=== PATIENT | male | born 1965 | race Caucasian/White ===

== ENCOUNTER 2017-12-15 10:37 | Emergency (ER) | payer OTHER ==
[2017-12-15 11:24] LABS: ADD MAN DIFF? NO
[2017-12-15] MEDS: SOD CHLORIDE 0.9% 500 ML IV (11:25)
[2017-12-15] MEDS: ONDANSETRON 4 MG INJ IV (11:25)
[2017-12-15] MEDS: FAMOTIDINE 20 MG INJ IV (11:25)
[2017-12-15] MEDS: LIDOCAINE/MYLANTA 40 ML BTL PO (11:25)
[2017-12-15 11:27] LABS: BASOPHILS % 0.3 % (0.0-2.0); EOSINOPHILS # 0.1 10^3/ul (0.0-0.5); EOSINOPHILS % 1.1 % (0.0-7.0); HEMATOCRIT 41.9 % (42.0-52.0); HEMOGLOBIN 13.5 g/dl (14.0-18.0); LYMPHOCYTES # 1.4 10^3/ul (0.8-2.9); LYMPHOCYTES % 21.8 % (15.0-51.0); MEAN CORPUSCULAR HEMOGLOBIN 28.9 pg (29.0-33.0); MEAN CORPUSCULAR HGB CONC 32.2 g/dl (32.0-37.0); MEAN CORPUSCULAR VOLUME 89.7 fl (82.0-101.0); MEAN PLATELET VOLUME 11.6 fl (7.4-10.4); MONOCYTE # 0.4 10^3/ul (0.3-0.9); MONOCYTES % 5.5 % (0.0-11.0); NEUTROPHIL # 4.6 10^3/ul (1.6-7.5); NEUTROPHILS % 71.1 % (39.0-77.0); PLATELET COUNT 211 10^3/UL (140-415); RED BLOOD COUNT 4.67 10^6/ul (4.70-6.10); RED CELL DISTRIBUTION WIDTH 12.3 % (11.5-14.5)
[2017-12-15 11:27] LABS: WHITE BLOOD COUNT 6.5 10^3/ul (4.8-10.8)
[2017-12-15 11:43] LABS: INR 0.95; PROTIME 12.8 Sec (11.9-14.9)
[2017-12-15 11:44] LABS: PARTIAL THROMBOPLASTIN TIME 32.3 Sec (23.0-35.0)
[2017-12-15 11:48] LABS: ALANINE AMINOTRANSFERASE 27 IU/L (13-69); ALBUMIN 4.7 g/dl (3.3-4.9); ALKALINE PHOSPHATASE 95 IU/L (42-121); ANION GAP 10 (5-13); ASPARTATE AMINO TRANSFERASE 30 IU/L (15-46); BILIRUBIN,INDIRECT 0.4 mg/dl (0-1.1); BILIRUBIN,TOTAL 0.4 mg/dl (0.2-1.3); BLOOD UREA NITROGEN 12 mg/dl (7-20); CALCIUM 9.6 mg/dl (8.4-10.2); CARBON DIOXIDE 38 mmol/L (21-31); CHLORIDE 91 mmol/L (97-110); CREATININE 0.45 mg/dl (0.61-1.24); Estimated GFR > 60 mL/min (>60); GLUCOSE 105 mg/dl (70-220); LIPASE 48 U/L (23-300); POTASSIUM 4.2 mmol/L (3.5-5.1); SODIUM 139 mmol/L (135-144); TOTAL PROTEIN 8.6 g/dl (6.1-8.1)
[2017-12-15] MEDS: KETOROLAC 15 MG INJ IV (14:18)
== END 2017-12-15 17:00 | disposition home or self-care (01) ==
LOC: E/R 10:37
DX: J84.10 Pulmonary fibrosis, unspecified (principal); R10.13 Epigastric pain; R53.1 Weakness; Z79.01 Long term (current) use of anticoagulants; Z86.711 Personal history of pulmonary embolism; Z99.81 Dependence on supplemental oxygen
CPT/HCPCS: 36415; 71045; 80053; 83690; 85025; 85610; 85730; 93005; 96374; 96375; 99284-25

== ENCOUNTER 2018-08-07 21:22 | Inpatient (IN) | payer OTHER ==
[2018-08-07 21:41] LABS: ADD MAN DIFF? NO
[2018-08-07 21:44] LABS: WHITE BLOOD COUNT 10.8 10^3/ul (4.8-10.8)
[2018-08-07 21:44] LABS: BASOPHILS % 0.2 % (0.0-2.0); EOSINOPHILS # 0.1 10^3/ul (0.0-0.5); EOSINOPHILS % 0.5 % (0.0-7.0); HEMATOCRIT 43.8 % (42.0-52.0); HEMOGLOBIN 13.7 g/dl (14.0-18.0); MEAN CORPUSCULAR HEMOGLOBIN 28.7 pg (29.0-33.0); MEAN CORPUSCULAR HGB CONC 31.3 g/dl (32.0-37.0); MEAN CORPUSCULAR VOLUME 91.8 fl (82.0-101.0); MEAN PLATELET VOLUME 11.8 fl (7.4-10.4); MONOCYTE # 0.4 10^3/ul (0.3-0.9); MONOCYTES % 3.6 % (0.0-11.0); NEUTROPHIL # 9.4 10^3/ul (1.6-7.5); NEUTROPHILS % 86.3 % (39.0-77.0); PLATELET COUNT 187 10^3/UL (140-415); RED BLOOD COUNT 4.77 10^6/ul (4.70-6.10); RED CELL DISTRIBUTION WIDTH 12.6 % (11.5-14.5)
[2018-08-07] MEDS: IOHEXOL 100 ML (21:44)
[2018-08-07] MEDS: SOD CHLORIDE 0.9% 100 ML (21:44)
[2018-08-07] MEDS: SOD CHLORIDE 0.9% 1,000 ML IV (21:52)
[2018-08-07] MEDS: SODIUM CHLORIDE 0.9% 1L BAG IV* (21:53)
[2018-08-07] MEDS: CEFEPIME 2GM/50 ML (PMX) 50 ML IVPB (21:54)
[2018-08-07] MEDS: morphine 4 MG/ML VIAL IV (21:54)
[2018-08-07] MEDS: ONDANSETRON 4 MG INJ IV (21:54)
[2018-08-07 22:03] LABS: INR 0.94; PROTIME 12.7 Sec (11.9-14.9)
[2018-08-07 22:04] LABS: PARTIAL THROMBOPLASTIN TIME 26.2 Sec (23.0-35.0)
[2018-08-07 22:05] LABS: ALANINE AMINOTRANSFERASE 21 IU/L (13-69); ALBUMIN 4.5 g/dl (3.3-4.9); ALBUMIN/GLOBULIN RATIO 1.18; ALKALINE PHOSPHATASE 87 IU/L (42-121); AMYLASE 101 U/L (11-123); ASPARTATE AMINO TRANSFERASE 26 IU/L (15-46); BILIRUBIN,INDIRECT 0.4 mg/dl (0-1.1); BILIRUBIN,TOTAL 0.4 mg/dl (0.2-1.3); BLOOD UREA NITROGEN 15 mg/dl (7-20); CALCIUM 9.2 mg/dl (8.4-10.2); CHLORIDE 88 mmol/L (97-110); CREATININE 0.51 mg/dl (0.61-1.24); Estimated GFR > 60 mL/min (>60); GLUCOSE 176 mg/dl (70-220); LIPASE 102 U/L (23-300); POTASSIUM 3.8 mmol/L (3.5-5.1); SODIUM 137 mmol/L (135-144); TOTAL PROTEIN 8.3 g/dl (6.1-8.1)
[2018-08-07 22:15] LABS: ANION GAP 7 (5-13); CARBON DIOXIDE 42 mmol/L (21-31)
[2018-08-07 22:17] LABS: TROPONIN-I < 0.012 ng/ml (0.000-0.120)
[2018-08-07] MEDS: LORAZEPAM 2 MG INJ IV (22:17)
[2018-08-07] MEDS: VANCOMYCIN 1 GM (PMX) 250 ML IVPB (22:25)
[2018-08-07] MEDS: IPRATROPIUM (NEB) 0.5 MG/2.5 ML AMP INH (23:46)
[2018-08-07] MEDS: LEVALBUTEROL (NEB) 1.25 MG/0.5 ML AMP INH (23:46)
[2018-08-07 23:56] LABS: LACTIC ACID 0.6 mmol/L (0.5-2.0)
[2018-08-08] MEDS: HYDROmorphONE 1 MG/ML SYG IV (00:47)
[2018-08-08] MEDS: PROPOFOL 200 MG INJ IV (01:11)
[2018-08-08] MEDS: SOD CHLORIDE 0.9% 1,000 ML IV (01:56)
[2018-08-08 03:20] LABS: ADD UMIC NO; UR ASCORBIC ACID NEGATIVE (NEGATIVE); UR BILIRUBIN (Dip) NEGATIVE (NEGATIVE); UR BLOOD (Dip) NEGATIVE (NEGATIVE); UR CLARITY CLEAR (CLEAR); UR COLOR STRAW (YELLOW); UR GLUCOSE (Dip) NEGATIVE (NEGATIVE); UR KETONES (Dip) NEGATIVE (NEGATIVE); UR LEUKOCYTE ESTERASE (Dip) NEGATIVE Leu/ul (NEGATIVE); UR NITRITE (Dip) NEGATIVE (NEGATIVE); UR SPECIFIC GRAVITY (Dip) 1.038 (1.003-1.030); UR TOTAL PROTEIN (Dip) NEGATIVE (NEGATIVE); UR UROBILINOGEN (Dip) NEGATIVE (NEGATIVE)
[2018-08-08 05:42] LABS: ADD MAN DIFF? NO
[2018-08-08 05:48] LABS: WHITE BLOOD COUNT 12.3 10^3/ul (4.8-10.8)
[2018-08-08 05:48] LABS: BASOPHILS % 0.2 % (0.0-2.0); HEMATOCRIT 38.1 % (42.0-52.0); LYMPHOCYTES # 1.1 10^3/ul (0.8-2.9); LYMPHOCYTES % 8.9 % (15.0-51.0); MEAN CORPUSCULAR HEMOGLOBIN 29.1 pg (29.0-33.0); MEAN CORPUSCULAR HGB CONC 31.5 g/dl (32.0-37.0); MEAN CORPUSCULAR VOLUME 92.5 fl (82.0-101.0); MEAN PLATELET VOLUME 11.7 fl (7.4-10.4); MONOCYTE # 0.9 10^3/ul (0.3-0.9); MONOCYTES % 7.2 % (0.0-11.0); NEUTROPHIL # 10.2 10^3/ul (1.6-7.5); NEUTROPHILS % 83.3 % (39.0-77.0); PLATELET COUNT 165 10^3/UL (140-415); RED BLOOD COUNT 4.12 10^6/ul (4.70-6.10); RED CELL DISTRIBUTION WIDTH 12.6 % (11.5-14.5)
[2018-08-08 06:17] LABS: ALANINE AMINOTRANSFERASE 22 IU/L (13-69); ALBUMIN 3.8 g/dl (3.3-4.9); ALBUMIN/GLOBULIN RATIO 1.22; ALKALINE PHOSPHATASE 67 IU/L (42-121); ASPARTATE AMINO TRANSFERASE 30 IU/L (15-46); BILIRUBIN,INDIRECT 0.3 mg/dl (0-1.1); BILIRUBIN,TOTAL 0.3 mg/dl (0.2-1.3); BLOOD UREA NITROGEN 9 mg/dl (7-20); CHLORIDE 92 mmol/L (97-110); CREATININE 0.37 mg/dl (0.61-1.24); Estimated GFR > 60 mL/min (>60); GLUCOSE 135 mg/dl (70-220); POTASSIUM 4.3 mmol/L (3.5-5.1); SODIUM 140 mmol/L (135-144); TOTAL PROTEIN 6.9 g/dl (6.1-8.1)
[2018-08-08 06:38] LABS: ANION GAP 7 (5-13)
[2018-08-08 06:39] LABS: CARBON DIOXIDE 41 mmol/L (21-31)
[2018-08-08] MEDS: BACLOFEN 10 MG TAB PO ×3 (08:17→23:02)
[2018-08-08] MEDS: DOCUSATE SODIUM 100 MG CAP PO (08:19)
[2018-08-08] MEDS: TIOTROPIUM 18 MCG CAPSULE INHA DEV INH (08:19)
[2018-08-08] MEDS: FAMOTIDINE 20 MG TAB PO ×2 (08:19→21:06)
[2018-08-08] MEDS ORDERED: LORAZEPAM 2 MG INJ IV (17:30)
[2018-08-08] MEDS ORDERED: ALBUTEROL/IPRATROPIUM (NEB) 3 ML AMP HHN (17:30)
[2018-08-08] MEDS: HYDROCODONE/APAP (5/325) TAB PO ×2 (18:30→23:01)
[2018-08-08] MEDS: CEPASTAT LOZENGE MT (22:59)
[2018-08-09] MEDS ORDERED: VANCOMYCIN IV PER PHARMACY XX (01:00)
[2018-08-09] MEDS: VANCOMYCIN 1 GM 250 ML IVPB (02:23)
[2018-08-09] MEDS: DICLOFENAC SODIUM 1% GEL 100 GM TUBE TP ×5 (05:14→20:53)
[2018-08-09] MEDS: HYDROCODONE/APAP (5/325) TAB PO ×2 (05:32→23:17)
[2018-08-09 06:35] LABS: ADD MAN DIFF? NO
[2018-08-09 06:40] LABS: BASOPHILS % 0.3 % (0.0-2.0); EOSINOPHILS # 0.2 10^3/ul (0.0-0.5); EOSINOPHILS % 2.7 % (0.0-7.0); HEMOGLOBIN 11.5 g/dl (14.0-18.0); LYMPHOCYTES % 13.2 % (15.0-51.0); MEAN CORPUSCULAR HEMOGLOBIN 28.8 pg (29.0-33.0); MEAN CORPUSCULAR HGB CONC 31.1 g/dl (32.0-37.0); MEAN CORPUSCULAR VOLUME 92.5 fl (82.0-101.0); MEAN PLATELET VOLUME 12.2 fl (7.4-10.4); MONOCYTES % 12.2 % (0.0-11.0); NEUTROPHIL # 5.6 10^3/ul (1.6-7.5); NEUTROPHILS % 71.3 % (39.0-77.0); PLATELET COUNT 143 10^3/UL (140-415); RED CELL DISTRIBUTION WIDTH 12.4 % (11.5-14.5)
[2018-08-09 06:40] LABS: WHITE BLOOD COUNT 7.9 10^3/ul (4.8-10.8)
[2018-08-09 06:57] LABS: BLOOD UREA NITROGEN 10 mg/dl (7-20); CHLORIDE 86 mmol/L (97-110); CREATININE 0.46 mg/dl (0.61-1.24); Estimated GFR > 60 mL/min (>60); GLUCOSE 93 mg/dl (70-220); MAGNESIUM 1.8 mg/dl (1.7-2.5); POTASSIUM 4.3 mmol/L (3.5-5.1); SODIUM 139 mmol/L (135-144)
[2018-08-09 07:05] LABS: HEMOGLOBIN A1C 5.1 % (0-5.9)
[2018-08-09 07:31] LABS: ANION GAP 5 (5-13)
[2018-08-09 07:32] LABS: CARBON DIOXIDE 48 mmol/L (21-31)
[2018-08-09] MEDS: DOCUSATE SODIUM 100 MG CAP PO (08:20)
[2018-08-09] MEDS: ACETAMINOPHEN 650MG/20.3ML CUP PO ×2 (08:20→14:18)
[2018-08-09] MEDS: BACLOFEN 10 MG TAB PO ×2 (08:20→14:18)
[2018-08-09] MEDS: TIOTROPIUM 18 MCG CAPSULE INHA DEV INH (08:21)
[2018-08-09] MEDS: FAMOTIDINE 20 MG TAB PO ×2 (08:22→20:53)
[2018-08-09 09:40] LABS: AADO2 Arterial 51.4 mmHg (7.0-24.0); Allen Test ACCEPTAB; Arterial Base Excess 13.9 mmol/L (-3.0-3); Arterial Blood Gas Oxygen Sat 92.6 mmHG (95.0-98.0); Arterial COHb 0.7 % (0.0-3.0); Arterial Fraction of Oxyhgb 91.8 % (93.0-99.0); Arterial HCO3 43.6 mmol/L (22.0-26.0); Arterial MetHb 0.2 % (0.0-1.5); Arterial pCO2 84.1 mmhg (35-45); MODE NASAL CANNULA; Site Left Radial
[2018-08-09] MEDS: VANCOMYCIN 750 MG (PMX) 250 ML IVPB (10:07)
[2018-08-09] MEDS: traMADol 50 MG TAB PO (10:57)
[2018-08-09] MEDS: FLUTICASONE/VILANTEROL 200-25 INH DEVICE INH (11:20)
[2018-08-09] MEDS: ARTIFICIAL TEARS 15 ML OPH BOTH EYES (16:39)
[2018-08-09] MEDS: CEPASTAT LOZENGE MT (17:43)
[2018-08-10] MEDS: BACLOFEN 10 MG TAB PO ×4 (00:21→21:58)
[2018-08-10] MEDS: CEPASTAT LOZENGE MT ×2 (00:23→13:24)
[2018-08-10] MEDS: FLUTICASONE/VILANTEROL 200-25 INH DEVICE INH (08:58)
[2018-08-10] MEDS: TIOTROPIUM 18 MCG CAPSULE INHA DEV INH (08:58)
[2018-08-10] MEDS: DICLOFENAC SODIUM 1% GEL 100 GM TUBE TP ×4 (08:59→21:58)
[2018-08-10] MEDS: DOCUSATE SODIUM 100 MG CAP PO (08:59)
[2018-08-10] MEDS: FAMOTIDINE 20 MG TAB PO ×2 (08:59→21:58)
[2018-08-10] MEDS: HYDROCODONE/APAP (5/325) TAB PO (09:05)
[2018-08-10] MEDS: ACETYLCYSTEINE 20% 4 ML VIAL NEB (11:37)
[2018-08-10] MEDS: ACETAMINOPHEN 650MG/20.3ML CUP PO (15:51)
[2018-08-11] MEDS: ACETAMINOPHEN 650MG/20.3ML CUP PO ×3 (00:12→20:15)
[2018-08-11] MEDS: MAGNESIUM HYDROXIDE 30ML CUP PO (06:28)
[2018-08-11] MEDS: DOCUSATE SODIUM 100 MG CAP PO ×2 (08:13→22:12)
[2018-08-11] MEDS: DICLOFENAC SODIUM 1% GEL 100 GM TUBE TP ×5 (08:13→21:01)
[2018-08-11] MEDS: FLUTICASONE/VILANTEROL 200-25 INH DEVICE INH (08:13)
[2018-08-11] MEDS: TIOTROPIUM 18 MCG CAPSULE INHA DEV INH (08:13)
[2018-08-11] MEDS: FAMOTIDINE 20 MG TAB PO (08:13)
[2018-08-11] MEDS: BACLOFEN 10 MG TAB PO ×3 (08:13→20:16)
[2018-08-11] MEDS: HYDROCODONE/APAP (5/325) TAB PO (12:19)
[2018-08-11] MEDS ORDERED: METOPROLOL 5 MG INJ (17:00)
[2018-08-11] MEDS: SOD CHLORIDE 0.9% 1,000 ML IV (20:16)
[2018-08-11] MEDS: CYCLOBENZAPRINE 10 MG TAB PO (21:13)
[2018-08-11] MEDS: POLYETHYLENE GLYCOL 17 GM PACKET PO (22:00)
[2018-08-11] MEDS: AL HYDROX/MG HYDROX/SIMETH 30 ML CUP PO (22:12)
[2018-08-12] MEDS: ACETAMINOPHEN 650MG/20.3ML CUP PO (06:14)
[2018-08-12 06:48] LABS: ADD MAN DIFF? NO
[2018-08-12 06:53] LABS: BASOPHILS % 0.3 % (0.0-2.0); EOSINOPHILS # 0.3 10^3/ul (0.0-0.5); EOSINOPHILS % 5.2 % (0.0-7.0); HEMATOCRIT 38.1 % (42.0-52.0); HEMOGLOBIN 12.1 g/dl (14.0-18.0); LYMPHOCYTES # 1.4 10^3/ul (0.8-2.9); LYMPHOCYTES % 23.4 % (15.0-51.0); MEAN CORPUSCULAR HEMOGLOBIN 28.3 pg (29.0-33.0); MEAN CORPUSCULAR HGB CONC 31.8 g/dl (32.0-37.0); MEAN CORPUSCULAR VOLUME 89.2 fl (82.0-101.0); MEAN PLATELET VOLUME 11.4 fl (7.4-10.4); MONOCYTE # 0.6 10^3/ul (0.3-0.9); NEUTROPHIL # 3.5 10^3/ul (1.6-7.5); NEUTROPHILS % 59.8 % (39.0-77.0); PLATELET COUNT 200 10^3/UL (140-415); RED BLOOD COUNT 4.27 10^6/ul (4.70-6.10); RED CELL DISTRIBUTION WIDTH 12.4 % (11.5-14.5)
[2018-08-12 06:53] LABS: WHITE BLOOD COUNT 5.8 10^3/ul (4.8-10.8)
[2018-08-12 07:11] LABS: PHOSPHORUS 3.8 mg/dl (2.5-4.9)
[2018-08-12 07:11] LABS: MAGNESIUM 1.9 mg/dl (1.7-2.5)
[2018-08-12 07:12] LABS: ANION GAP 8 (5-13); BLOOD UREA NITROGEN 12 mg/dl (7-20); CALCIUM 9.4 mg/dl (8.4-10.2); CHLORIDE 95 mmol/L (97-110); CREATININE 0.45 mg/dl (0.61-1.24); Estimated GFR > 60 mL/min (>60); GLUCOSE 100 mg/dl (70-220); POTASSIUM 3.6 mmol/L (3.5-5.1); SODIUM 143 mmol/L (135-144)
[2018-08-12 07:18] LABS: CARBON DIOXIDE 40 mmol/L (21-31)
[2018-08-12 07:29] LABS: FREE T4 (FREE THYROXINE) 1.44 ng/dl (0.64-1.79)
[2018-08-12 07:42] LABS: TRIIODOTHYRONINE 1.06 ng/ml (0.97-1.69)
[2018-08-12] MEDS: POLYETHYLENE GLYCOL 17 GM PACKET PO (08:36)
[2018-08-12] MEDS: DICLOFENAC SODIUM 1% GEL 100 GM TUBE TP ×3 (08:36→16:13)
[2018-08-12] MEDS: FAMOTIDINE 20 MG TAB PO (08:36)
[2018-08-12] MEDS: BACLOFEN 10 MG TAB PO ×2 (08:36→12:39)
[2018-08-12] MEDS: DOCUSATE SODIUM 100 MG CAP PO ×2 (08:36→21:00)
[2018-08-12] MEDS: FLUTICASONE/VILANTEROL 200-25 INH DEVICE INH (08:37)
[2018-08-12] MEDS: TIOTROPIUM 18 MCG CAPSULE INHA DEV INH (08:37)
[2018-08-12] MEDS: SOD CHLORIDE 0.9% 1,000 ML IV (09:51)
[2018-08-12] MEDS: CYCLOBENZAPRINE 10 MG TAB PO (09:51)
[2018-08-12] MEDS: HEPARIN 5,000 UNIT/1 ML VIAL SC (11:00)
[2018-08-12] MEDS: HYDROCODONE/APAP (10/325) TAB PO (11:03)
[2018-08-12] MEDS: AL HYDROX/MG HYDROX/SIMETH 30 ML CUP PO (12:45)
[2018-08-12 21:41] LABS: AADO2 Arterial 203.1 mmHg (7.0-24.0); Allen Test ACCEPTAB; Arterial Base Excess 4.4 mmol/L (-3.0-3); Arterial Blood Gas Oxygen Sat 99.7 mmHG (95.0-98.0); Arterial COHb 0.2 % (0.0-3.0); Arterial Fraction of Oxyhgb 99.2 % (93.0-99.0); Arterial HCO3 38.3 mmol/L (22.0-26.0); Arterial MetHb 0.3 % (0.0-1.5); Arterial pCO2 124.9 mmhg (35-45); MODE MASK - NRB; Site Right Radial
[2018-08-12 21:58] LABS: ADD MAN DIFF? NO
[2018-08-12] MEDS: METOPROLOL 5 MG INJ IV ×2 (22:00)
[2018-08-12 22:02] LABS: BASOPHILS % 0.4 % (0.0-2.0); EOSINOPHILS # 0.3 10^3/ul (0.0-0.5); EOSINOPHILS % 2.8 % (0.0-7.0); HEMATOCRIT 39.7 % (42.0-52.0); HEMOGLOBIN 12.4 g/dl (14.0-18.0); LYMPHOCYTES # 4.4 10^3/ul (0.8-2.9); LYMPHOCYTES % 44.8 % (15.0-51.0); MEAN CORPUSCULAR HGB CONC 31.2 g/dl (32.0-37.0); MEAN CORPUSCULAR VOLUME 92.8 fl (82.0-101.0); MEAN PLATELET VOLUME 11.5 fl (7.4-10.4); MONOCYTE # 0.6 10^3/ul (0.3-0.9); NEUTROPHIL # 4.5 10^3/ul (1.6-7.5); NEUTROPHILS % 45.8 % (39.0-77.0); PLATELET COUNT 235 10^3/UL (140-415); RED BLOOD COUNT 4.28 10^6/ul (4.70-6.10); RED CELL DISTRIBUTION WIDTH 12.6 % (11.5-14.5)
[2018-08-12 22:02] LABS: WHITE BLOOD COUNT 9.7 10^3/ul (4.8-10.8)
[2018-08-12] MEDS: LABETALOL HCL 20MG INJ IV (22:18)
[2018-08-12 22:22] LABS: INR 1.04; PROTIME 13.7 Sec (11.9-14.9); PT RATIO 1.1
[2018-08-12 22:23] LABS: PARTIAL THROMBOPLASTIN TIME 28.2 Sec (23.0-35.0)
[2018-08-12] MEDS ORDERED: NITROGLYCERIN (SL) 0.4 MG TAB SL (22:30)
[2018-08-12 23:02] LABS: ANION GAP 6 (5-13); BLOOD UREA NITROGEN 16 mg/dl (7-20); CALCIUM 8.8 mg/dl (8.4-10.2); CHLORIDE 93 mmol/L (97-110); CREATINE KINASE 45 IU/L (23-200); CREATININE 0.67 mg/dl (0.61-1.24); Estimated GFR > 60 mL/min (>60); GLUCOSE 191 mg/dl (70-220); POTASSIUM 4.1 mmol/L (3.5-5.1); SODIUM 139 mmol/L (135-144)
[2018-08-12 23:03] LABS: CARBON DIOXIDE 40 mmol/L (21-31)
[2018-08-12] MEDS: KETOROLAC 30 MG INJ IV (23:08)
[2018-08-12 23:12] LABS: CK INDEX 3.2; CK-MB 1.44 ng/ml (0.0-2.4); TROPONIN-I < 0.012 ng/ml (0.000-0.120)
[2018-08-13] MEDS: BACLOFEN 10 MG TAB PO ×4 (00:09→22:16)
[2018-08-13] MEDS: DICLOFENAC SODIUM 1% GEL 100 GM TUBE TP ×5 (00:09→21:00)
[2018-08-13] MEDS: SOD CHLORIDE 0.9% 1,000 ML IV ×2 (00:10→03:47)
[2018-08-13] MEDS: HEPARIN 5,000 UNIT/1 ML VIAL SC ×2 (00:27→08:44)
[2018-08-13 00:50] LABS: AADO2 Arterial 207.4 mmHg (7.0-24.0); Allen Test ACCEPTAB; Arterial Base Excess 8.9 mmol/L (-3.0-3); Arterial Blood Gas Oxygen Sat 99.6 mmHG (95.0-98.0); Arterial COHb 0.3 % (0.0-3.0); Arterial HCO3 38.1 mmol/L (22.0-26.0); Arterial MetHb 0.3 % (0.0-1.5); Arterial pCO2 78.2 mmhg (35-45); MODE HFNC; Site Right Radial
[2018-08-13 01:01] LABS: CREATINE KINASE 83 IU/L (23-200)
[2018-08-13 01:14] LABS: CK INDEX 3.4
[2018-08-13 01:19] LABS: TROPONIN-I 0.212 ng/ml (0.000-0.120)
[2018-08-13] MEDS: ACETAMINOPHEN 650MG/20.3ML CUP PO ×2 (01:28→08:07)
[2018-08-13] MEDS: CYCLOBENZAPRINE 10 MG TAB PO (01:28)
[2018-08-13 06:39] LABS: CREATINE KINASE 102 IU/L (23-200)
[2018-08-13 06:54] LABS: CK-MB 5.11 ng/ml (0.0-2.4); TROPONIN-I 0.556 ng/ml (0.000-0.120)
[2018-08-13 07:47] LABS: AADO2 Arterial 76.9 mmHg (7.0-24.0); Allen Test ACCEPTAB; Arterial Blood Gas Oxygen Sat 96.8 mmHG (95.0-98.0); Arterial COHb 0.2 % (0.0-3.0); Arterial Fraction of Oxyhgb 96.5 % (93.0-99.0); Arterial HCO3 37.9 mmol/L (22.0-26.0); Arterial MetHb 0.1 % (0.0-1.5); Arterial pCO2 68.6 mmhg (35-45); MODE HFNC; Site Left Radial
[2018-08-13] MEDS: POLYETHYLENE GLYCOL 17 GM PACKET PO (08:06)
[2018-08-13] MEDS: DOCUSATE SODIUM 100 MG CAP PO ×2 (08:07→22:15)
[2018-08-13] MEDS: FAMOTIDINE 20 MG TAB PO (08:07)
[2018-08-13] MEDS: TIOTROPIUM 18 MCG CAPSULE INHA DEV INH (08:08)
[2018-08-13] MEDS: FLUTICASONE/VILANTEROL 200-25 INH DEVICE INH (08:08)
[2018-08-13] MEDS: HYDROCODONE/APAP (10/325) TAB PO ×2 (09:42→16:05)
[2018-08-13] MEDS: ASPIRIN 325 MG TAB PO (11:01)
[2018-08-13] MEDS: METOPROLOL 25 MG TAB PO (11:03)
[2018-08-13] MEDS: ATORVASTATIN 80 MG TAB PO (12:02)
[2018-08-13] MEDS: HYDROCORTISONE 100 MG INJ IV (12:03)
[2018-08-13 12:48] LABS: CREATINE KINASE 98 IU/L (23-200)
[2018-08-13 13:01] LABS: CK INDEX 5.6
[2018-08-13 13:05] LABS: CK-MB 5.48 ng/ml (0.0-2.4); TROPONIN-I 0.383 ng/ml (0.000-0.120)
[2018-08-13] MEDS ORDERED: HEPARIN 1000 UNITS/NS (A-LINE) 1,000 ML (14:15)
[2018-08-13] MEDS ORDERED: HEPARIN 1000 UNITS/ML 10 ML INJ (14:15)
[2018-08-13] MEDS ORDERED: LIDOCAINE 1% (MDV) 20 ML INJ (14:15)
[2018-08-13] MEDS ORDERED: FENTAnyl 50 MCG/ML VIAL (14:35)
[2018-08-13] MEDS: HOLD all METFORMIN and METFORMIN CONTAINING medications for 48 hours post procedure. Chec XX (15:30)
[2018-08-13] MEDS ORDERED: IODIXANOL LOCM 100 ML BTL (15:59)
[2018-08-13 18:59] LABS: CREATINE KINASE 95 IU/L (23-200)
[2018-08-13 19:14] LABS: CK INDEX 5.7
[2018-08-13 19:49] LABS: CK-MB 5.44 ng/ml (0.0-2.4); TROPONIN-I 0.203 ng/ml (0.000-0.120)
[2018-08-13] MEDS: ONDANSETRON 4 MG INJ IV (20:06)
[2018-08-13] MEDS: morphine 2 MG INJ IV (20:18)
[2018-08-13] MEDS: SOD CHLORIDE 0.9% 100 ML (20:44)
[2018-08-13] MEDS: IOHEXOL 100 ML (20:44)
[2018-08-13] MEDS: RIVAROXABAN 20 MG TABLET PO (22:15)
[2018-08-14] MEDS: CYCLOBENZAPRINE 10 MG TAB PO ×2 (00:10→20:05)
[2018-08-14] MEDS: HYDROCODONE/APAP (10/325) TAB PO ×2 (00:11→09:33)
[2018-08-14] MEDS: SOD CHLORIDE 0.9% 1,000 ML IV (00:35)
[2018-08-14 01:15] LABS: CREATINE KINASE 71 IU/L (23-200)
[2018-08-14 01:27] LABS: CK INDEX 5.7
[2018-08-14 01:31] LABS: CK-MB 4.07 ng/ml (0.0-2.4); TROPONIN-I 0.215 ng/ml (0.000-0.120)
[2018-08-14 06:19] LABS: ADD MAN DIFF? NO
[2018-08-14 06:21] LABS: WHITE BLOOD COUNT 6.7 10^3/ul (4.8-10.8)
[2018-08-14 06:21] LABS: BASOPHILS % 0.1 % (0.0-2.0); EOSINOPHILS # 0.1 10^3/ul (0.0-0.5); EOSINOPHILS % 1.5 % (0.0-7.0); HEMATOCRIT 32.5 % (42.0-52.0); HEMOGLOBIN 10.3 g/dl (14.0-18.0); LYMPHOCYTES # 1.5 10^3/ul (0.8-2.9); MEAN CORPUSCULAR HEMOGLOBIN 28.8 pg (29.0-33.0); MEAN CORPUSCULAR HGB CONC 31.7 g/dl (32.0-37.0); MEAN CORPUSCULAR VOLUME 90.8 fl (82.0-101.0); MEAN PLATELET VOLUME 11.6 fl (7.4-10.4); MONOCYTE # 0.8 10^3/ul (0.3-0.9); MONOCYTES % 11.7 % (0.0-11.0); NEUTROPHIL # 4.3 10^3/ul (1.6-7.5); NEUTROPHILS % 64.4 % (39.0-77.0); PLATELET COUNT 182 10^3/UL (140-415); RED BLOOD COUNT 3.58 10^6/ul (4.70-6.10); RED CELL DISTRIBUTION WIDTH 12.6 % (11.5-14.5)
[2018-08-14 07:26] LABS: BLOOD UREA NITROGEN 18 mg/dl (7-20); CALCIUM 8.9 mg/dl (8.4-10.2); CHLORIDE 93 mmol/L (97-110); CREATININE 0.58 mg/dl (0.61-1.24); Estimated GFR > 60 mL/min (>60); GLUCOSE 80 mg/dl (70-220); POTASSIUM 4.1 mmol/L (3.5-5.1); SODIUM 139 mmol/L (135-144)
[2018-08-14 07:35] LABS: ANION GAP 6 (5-13)
[2018-08-14 08:14] LABS: CARBON DIOXIDE 40 mmol/L (21-31)
[2018-08-14] MEDS ORDERED: ASPIRIN 81 MG TAB PO (09:00)
[2018-08-14] MEDS: POLYETHYLENE GLYCOL 17 GM PACKET PO ×2 (09:00→09:28)
[2018-08-14] MEDS: LISINOPRIL 5 MG TAB PO (09:00)
[2018-08-14] MEDS: FLUTICASONE/VILANTEROL 200-25 INH DEVICE INH (09:27)
[2018-08-14] MEDS: FAMOTIDINE 20 MG TAB PO (09:28)
[2018-08-14] MEDS: DICLOFENAC SODIUM 1% GEL 100 GM TUBE TP ×4 (09:28→20:06)
[2018-08-14] MEDS: BACLOFEN 10 MG TAB PO ×3 (09:28→20:05)
[2018-08-14] MEDS: DOCUSATE SODIUM 100 MG CAP PO ×2 (09:28→20:05)
[2018-08-14] MEDS: TIOTROPIUM 18 MCG CAPSULE INHA DEV INH (09:44)
[2018-08-14] MEDS: morphine 2 MG INJ IV (14:54)
[2018-08-14] MEDS: HOLD all METFORMIN and METFORMIN CONTAINING medications for 48 hours post procedure. Chec XX (15:18)
[2018-08-14] MEDS: CEPASTAT LOZENGE MT ×2 (15:18→20:05)
[2018-08-14] MEDS: ALBUTEROL/IPRATROPIUM (NEB) 3 ML AMP NEB ×2 (15:29→21:54)
[2018-08-14] MEDS: RIVAROXABAN 10 MG TABLET PO (18:02)
[2018-08-14] MEDS: ACETAMINOPHEN 650MG/20.3ML CUP PO (20:10)
[2018-08-15 08:19] LABS: ADD MAN DIFF? NO
[2018-08-15 08:26] LABS: WHITE BLOOD COUNT 9.1 10^3/ul (4.8-10.8)
[2018-08-15 08:26] LABS: BASOPHILS % 0.1 % (0.0-2.0); EOSINOPHILS # 0.3 10^3/ul (0.0-0.5); HEMATOCRIT 33.9 % (42.0-52.0); HEMOGLOBIN 10.9 g/dl (14.0-18.0); LYMPHOCYTES # 0.9 10^3/ul (0.8-2.9); LYMPHOCYTES % 9.5 % (15.0-51.0); MEAN CORPUSCULAR HEMOGLOBIN 28.6 pg (29.0-33.0); MEAN CORPUSCULAR HGB CONC 32.2 g/dl (32.0-37.0); MEAN PLATELET VOLUME 11.6 fl (7.4-10.4); MONOCYTE # 0.9 10^3/ul (0.3-0.9); MONOCYTES % 9.6 % (0.0-11.0); NEUTROPHIL # 7.1 10^3/ul (1.6-7.5); NEUTROPHILS % 77.5 % (39.0-77.0); PLATELET COUNT 188 10^3/UL (140-415); RED BLOOD COUNT 3.81 10^6/ul (4.70-6.10); RED CELL DISTRIBUTION WIDTH 12.7 % (11.5-14.5)
[2018-08-15] MEDS: DOCUSATE SODIUM 100 MG CAP PO ×2 (08:27→20:31)
[2018-08-15] MEDS: HYDROCODONE/APAP (10/325) TAB PO ×2 (08:27→14:04)
[2018-08-15] MEDS: BACLOFEN 10 MG TAB PO ×3 (08:27→20:31)
[2018-08-15] MEDS: POLYETHYLENE GLYCOL 17 GM PACKET PO (08:30)
[2018-08-15] MEDS: LISINOPRIL 5 MG TAB PO (08:30)
[2018-08-15] MEDS: FAMOTIDINE 20 MG TAB PO (08:30)
[2018-08-15] MEDS: DICLOFENAC SODIUM 1% GEL 100 GM TUBE TP ×4 (08:31→20:31)
[2018-08-15] MEDS: FLUTICASONE/VILANTEROL 200-25 INH DEVICE INH (08:33)
[2018-08-15] MEDS: TIOTROPIUM 18 MCG CAPSULE INHA DEV INH (08:37)
[2018-08-15 08:45] LABS: BLOOD UREA NITROGEN 14 mg/dl (7-20); CALCIUM 8.4 mg/dl (8.4-10.2); CHLORIDE 90 mmol/L (97-110); CREATININE 0.42 mg/dl (0.61-1.24); Estimated GFR > 60 mL/min (>60); GLUCOSE 98 mg/dl (70-220); POTASSIUM 3.9 mmol/L (3.5-5.1); SODIUM 139 mmol/L (135-144)
[2018-08-15 09:02] LABS: ANION GAP 5 (5-13); CARBON DIOXIDE 44 mmol/L (21-31)
[2018-08-15 11:06] LABS: AADO2 Arterial 37.6 mmHg (7.0-24.0); Allen Test ACCEPTAB; Arterial Base Excess 16.2 mmol/L (-3.0-3); Arterial Blood Gas Oxygen Sat 97.3 mmHG (95.0-98.0); Arterial Fraction of Oxyhgb 96.1 % (93.0-99.0); Arterial HCO3 45.7 mmol/L (22.0-26.0); Arterial MetHb 0.2 % (0.0-1.5); Arterial pCO2 85.2 mmhg (35-45); MODE NASAL CANNULA; Site Left Radial
[2018-08-15] MEDS: ALBUTEROL/IPRATROPIUM (NEB) 3 ML AMP NEB (17:24)
[2018-08-15] MEDS: RIVAROXABAN 10 MG TABLET PO (17:43)
[2018-08-15] MEDS: CYCLOBENZAPRINE 10 MG TAB PO (20:31)
[2018-08-15] MEDS: CEPASTAT LOZENGE MT (20:32)
[2018-08-15] MEDS: LEVALBUTEROL (NEB) 0.63 MG/3 ML AMP HHN (22:45)
[2018-08-16] MEDS: ACETAMINOPHEN 650MG/20.3ML CUP PO ×2 (00:03→09:37)
[2018-08-16 06:40] LABS: ADD MAN DIFF? NO
[2018-08-16 06:46] LABS: WHITE BLOOD COUNT 10.2 10^3/ul (4.8-10.8)
[2018-08-16 06:46] LABS: BASOPHILS % 0.1 % (0.0-2.0); EOSINOPHILS # 0.3 10^3/ul (0.0-0.5); EOSINOPHILS % 2.8 % (0.0-7.0); HEMATOCRIT 34.4 % (42.0-52.0); HEMOGLOBIN 11.2 g/dl (14.0-18.0); LYMPHOCYTES % 9.7 % (15.0-51.0); MEAN CORPUSCULAR HEMOGLOBIN 28.9 pg (29.0-33.0); MEAN CORPUSCULAR HGB CONC 32.6 g/dl (32.0-37.0); MEAN CORPUSCULAR VOLUME 88.9 fl (82.0-101.0); MEAN PLATELET VOLUME 11.6 fl (7.4-10.4); MONOCYTE # 1.4 10^3/ul (0.3-0.9); MONOCYTES % 13.4 % (0.0-11.0); NEUTROPHIL # 7.5 10^3/ul (1.6-7.5); NEUTROPHILS % 73.7 % (39.0-77.0); PLATELET COUNT 193 10^3/UL (140-415); RED BLOOD COUNT 3.87 10^6/ul (4.70-6.10); RED CELL DISTRIBUTION WIDTH 12.9 % (11.5-14.5)
[2018-08-16 07:04] LABS: BLOOD UREA NITROGEN 12 mg/dl (7-20); CALCIUM 8.8 mg/dl (8.4-10.2); CHLORIDE 88 mmol/L (97-110); CREATININE 0.34 mg/dl (0.61-1.24); Estimated GFR > 60 mL/min (>60); GLUCOSE 94 mg/dl (70-220); POTASSIUM 3.6 mmol/L (3.5-5.1); SODIUM 139 mmol/L (135-144)
[2018-08-16 07:12] LABS: ANION GAP 5 (5-13)
[2018-08-16 07:13] LABS: CARBON DIOXIDE 46 mmol/L (21-31)
[2018-08-16] MEDS: FAMOTIDINE 20 MG TAB PO (09:22)
[2018-08-16] MEDS: LISINOPRIL 5 MG TAB PO (09:22)
[2018-08-16] MEDS: DICLOFENAC SODIUM 1% GEL 100 GM TUBE TP ×4 (09:23→20:53)
[2018-08-16] MEDS: FLUTICASONE/VILANTEROL 200-25 INH DEVICE INH (09:23)
[2018-08-16] MEDS: BACLOFEN 10 MG TAB PO ×3 (09:23→20:52)
[2018-08-16] MEDS: TIOTROPIUM 18 MCG CAPSULE INHA DEV INH (09:23)
[2018-08-16] MEDS: POLYETHYLENE GLYCOL 17 GM PACKET PO (09:23)
[2018-08-16] MEDS: DOCUSATE SODIUM 100 MG CAP PO ×2 (09:29→20:52)
[2018-08-16] MEDS: CEPASTAT LOZENGE MT ×3 (09:29→17:15)
[2018-08-16] MEDS: morphine 2 MG INJ IV (12:37)
[2018-08-16] MEDS: CEFEPIME 1GM/50 ML (PMX) 50 ML IVPB ×2 (12:47→20:52)
[2018-08-16] MEDS: LEVALBUTEROL (NEB) 0.63 MG/3 ML AMP HHN ×2 (15:15→20:55)
[2018-08-16] MEDS: RIVAROXABAN 10 MG TABLET PO (17:05)
[2018-08-16] MEDS: HYDROCODONE/APAP (10/325) TAB PO (17:06)
[2018-08-16] MEDS: CYCLOBENZAPRINE 10 MG TAB PO (20:52)
[2018-08-16] MEDS: ACETYLCYSTEINE 20% 4 ML VIAL NEB (20:54)
[2018-08-16] MEDS: AL HYDROX/MG HYDROX/SIMETH 30 ML CUP PO (21:46)
[2018-08-17] MEDS: ACETAMINOPHEN 650MG/20.3ML CUP PO ×3 (01:45→18:41)
[2018-08-17 06:57] LABS: ADD MAN DIFF? NO
[2018-08-17 06:59] LABS: BASOPHILS % 0.2 % (0.0-2.0); EOSINOPHILS # 0.3 10^3/ul (0.0-0.5); EOSINOPHILS % 3.1 % (0.0-7.0); HEMATOCRIT 34.2 % (42.0-52.0); LYMPHOCYTES # 1.2 10^3/ul (0.8-2.9); LYMPHOCYTES % 10.5 % (15.0-51.0); MEAN CORPUSCULAR HEMOGLOBIN 28.6 pg (29.0-33.0); MEAN CORPUSCULAR HGB CONC 32.2 g/dl (32.0-37.0); MEAN CORPUSCULAR VOLUME 89.1 fl (82.0-101.0); MEAN PLATELET VOLUME 11.3 fl (7.4-10.4); MONOCYTE # 1.4 10^3/ul (0.3-0.9); MONOCYTES % 12.4 % (0.0-11.0); NEUTROPHIL # 8.1 10^3/ul (1.6-7.5); NEUTROPHILS % 73.4 % (39.0-77.0); PLATELET COUNT 220 10^3/UL (140-415); RED BLOOD COUNT 3.84 10^6/ul (4.70-6.10); RED CELL DISTRIBUTION WIDTH 12.9 % (11.5-14.5)
[2018-08-17 07:35] LABS: BLOOD UREA NITROGEN 13 mg/dl (7-20); CALCIUM 8.7 mg/dl (8.4-10.2); CHLORIDE 88 mmol/L (97-110); CREATININE 0.36 mg/dl (0.61-1.24); Estimated GFR > 60 mL/min (>60); GLUCOSE 96 mg/dl (70-220); POTASSIUM 3.7 mmol/L (3.5-5.1); SODIUM 139 mmol/L (135-144)
[2018-08-17 07:54] LABS: ANION GAP 7 (5-13); CARBON DIOXIDE 44 mmol/L (21-31)
[2018-08-17] MEDS: DOCUSATE SODIUM 100 MG CAP PO ×2 (08:49→20:53)
[2018-08-17] MEDS: TIOTROPIUM 18 MCG CAPSULE INHA DEV INH (08:49)
[2018-08-17] MEDS: LISINOPRIL 5 MG TAB PO (08:50)
[2018-08-17] MEDS: FAMOTIDINE 20 MG TAB PO (08:51)
[2018-08-17] MEDS: CEFEPIME 1GM/50 ML (PMX) 50 ML IVPB ×2 (08:51→20:54)
[2018-08-17] MEDS: POLYETHYLENE GLYCOL 17 GM PACKET PO (08:51)
[2018-08-17] MEDS: FLUTICASONE/VILANTEROL 200-25 INH DEVICE INH (08:51)
[2018-08-17] MEDS: DICLOFENAC SODIUM 1% GEL 100 GM TUBE TP ×4 (08:52→20:54)
[2018-08-17] MEDS: BACLOFEN 10 MG TAB PO ×3 (08:59→20:54)
[2018-08-17] MEDS: HYDROCODONE/APAP (10/325) TAB PO (13:24)
[2018-08-17] MEDS: RIVAROXABAN 10 MG TABLET PO (17:59)
[2018-08-17] MEDS: CYCLOBENZAPRINE 10 MG TAB PO (18:40)
[2018-08-17] MEDS: ONDANSETRON 4 MG INJ IV (19:52)
[2018-08-17] MEDS: ACETYLCYSTEINE 20% 4 ML VIAL NEB (23:04)
[2018-08-17] MEDS: AL HYDROX/MG HYDROX/SIMETH 30 ML CUP PO (23:53)
[2018-08-18] MEDS: CEPASTAT LOZENGE MT ×4 (00:40→22:49)
[2018-08-18] MEDS: ACETAMINOPHEN 650MG/20.3ML CUP PO (00:40)
[2018-08-18 07:31] LABS: ADD MAN DIFF? NO
[2018-08-18 07:41] LABS: BASOPHILS % 0.3 % (0.0-2.0); EOSINOPHILS # 0.3 10^3/ul (0.0-0.5); EOSINOPHILS % 3.3 % (0.0-7.0); HEMATOCRIT 33.9 % (42.0-52.0); HEMOGLOBIN 10.8 g/dl (14.0-18.0); MEAN CORPUSCULAR HEMOGLOBIN 29.2 pg (29.0-33.0); MEAN CORPUSCULAR HGB CONC 31.9 g/dl (32.0-37.0); MEAN CORPUSCULAR VOLUME 91.6 fl (82.0-101.0); MEAN PLATELET VOLUME 11.2 fl (7.4-10.4); MONOCYTE # 1.3 10^3/ul (0.3-0.9); MONOCYTES % 14.2 % (0.0-11.0); NEUTROPHIL # 6.3 10^3/ul (1.6-7.5); NEUTROPHILS % 70.8 % (39.0-77.0); PLATELET COUNT 244 10^3/UL (140-415)
[2018-08-18 08:12] LABS: BLOOD UREA NITROGEN 15 mg/dl (7-20); CALCIUM 8.8 mg/dl (8.4-10.2); CHLORIDE 87 mmol/L (97-110); CREATININE 0.45 mg/dl (0.61-1.24); Estimated GFR > 60 mL/min (>60); GLUCOSE 95 mg/dl (70-220); POTASSIUM 4.3 mmol/L (3.5-5.1); SODIUM 139 mmol/L (135-144)
[2018-08-18 08:32] LABS: ANION GAP 5 (5-13); CARBON DIOXIDE 47 mmol/L (21-31)
[2018-08-18] MEDS: CEFEPIME 1GM/50 ML (PMX) 50 ML IVPB ×2 (08:32→20:26)
[2018-08-18] MEDS: POLYETHYLENE GLYCOL 17 GM PACKET PO (08:32)
[2018-08-18] MEDS: DOCUSATE SODIUM 100 MG CAP PO ×2 (08:33→20:27)
[2018-08-18] MEDS: FAMOTIDINE 20 MG TAB PO (08:34)
[2018-08-18] MEDS: LISINOPRIL 5 MG TAB PO (08:35)
[2018-08-18] MEDS: TIOTROPIUM 18 MCG CAPSULE INHA DEV INH (08:36)
[2018-08-18] MEDS: FLUTICASONE/VILANTEROL 200-25 INH DEVICE INH (08:36)
[2018-08-18] MEDS: DICLOFENAC SODIUM 1% GEL 100 GM TUBE TP ×4 (08:36→20:28)
[2018-08-18] MEDS: BACLOFEN 10 MG TAB PO ×3 (08:37→20:28)
[2018-08-18] MEDS: HYDROCODONE/APAP (10/325) TAB PO ×2 (08:58→22:49)
[2018-08-18] MEDS: RIVAROXABAN 10 MG TABLET PO (17:26)
[2018-08-18] MEDS: ONDANSETRON 4 MG INJ IV (17:35)
[2018-08-18] MEDS: AL HYDROX/MG HYDROX/SIMETH 30 ML CUP PO (20:21)
[2018-08-18] MEDS: PHENOL 1.4% SOLN 180 ML BTL MT ×2 (20:22→23:37)
[2018-08-19] MEDS: HYDROCODONE/APAP (10/325) TAB PO ×3 (08:19→23:37)
[2018-08-19] MEDS: FAMOTIDINE 20 MG TAB PO (08:20)
[2018-08-19] MEDS: DOCUSATE SODIUM 100 MG CAP PO ×2 (08:20→20:36)
[2018-08-19] MEDS: LISINOPRIL 5 MG TAB PO (08:21)
[2018-08-19] MEDS: POLYETHYLENE GLYCOL 17 GM PACKET PO (08:22)
[2018-08-19] MEDS: DICLOFENAC SODIUM 1% GEL 100 GM TUBE TP ×4 (08:22→20:37)
[2018-08-19] MEDS: CEFEPIME 1GM/50 ML (PMX) 50 ML IVPB ×2 (08:22→20:36)
[2018-08-19] MEDS: TIOTROPIUM 18 MCG CAPSULE INHA DEV INH (08:22)
[2018-08-19] MEDS: FLUTICASONE/VILANTEROL 200-25 INH DEVICE INH (08:24)
[2018-08-19 08:37] LABS: ADD MAN DIFF? NO
[2018-08-19 08:43] LABS: WHITE BLOOD COUNT 8.1 10^3/ul (4.8-10.8)
[2018-08-19 08:43] LABS: BASOPHILS % 0.2 % (0.0-2.0); EOSINOPHILS # 0.2 10^3/ul (0.0-0.5); EOSINOPHILS % 2.6 % (0.0-7.0); HEMATOCRIT 34.6 % (42.0-52.0); HEMOGLOBIN 10.8 g/dl (14.0-18.0); LYMPHOCYTES % 12.3 % (15.0-51.0); MEAN CORPUSCULAR HEMOGLOBIN 28.8 pg (29.0-33.0); MEAN CORPUSCULAR HGB CONC 31.2 g/dl (32.0-37.0); MEAN CORPUSCULAR VOLUME 92.3 fl (82.0-101.0); MEAN PLATELET VOLUME 11.2 fl (7.4-10.4); MONOCYTE # 1.2 10^3/ul (0.3-0.9); MONOCYTES % 14.4 % (0.0-11.0); NEUTROPHIL # 5.7 10^3/ul (1.6-7.5); NEUTROPHILS % 70.1 % (39.0-77.0); PLATELET COUNT 269 10^3/UL (140-415); RED BLOOD COUNT 3.75 10^6/ul (4.70-6.10)
[2018-08-19] MEDS: BACLOFEN 10 MG TAB PO ×3 (09:00→20:37)
[2018-08-19 09:07] LABS: BLOOD UREA NITROGEN 13 mg/dl (7-20); CALCIUM 8.6 mg/dl (8.4-10.2); CHLORIDE 84 mmol/L (97-110); Estimated GFR > 60 mL/min (>60); GLUCOSE 84 mg/dl (70-220); POTASSIUM 4.1 mmol/L (3.5-5.1); SODIUM 138 mmol/L (135-144)
[2018-08-19 09:19] LABS: ANION GAP 5 (5-13); CARBON DIOXIDE 49 mmol/L (21-31)
[2018-08-19] MEDS: CYCLOBENZAPRINE 10 MG TAB PO ×2 (12:17→21:58)
[2018-08-19] MEDS: AL HYDROX/MG HYDROX/SIMETH 30 ML CUP PO ×2 (14:27→21:58)
[2018-08-19] MEDS: RIVAROXABAN 10 MG TABLET PO (17:48)
[2018-08-19] MEDS: CEPASTAT LOZENGE MT ×3 (20:55→23:37)
[2018-08-20] MEDS: HYDROCODONE/APAP (10/325) TAB PO ×3 (07:57→18:52)
[2018-08-20] MEDS: CEFEPIME 1GM/50 ML (PMX) 50 ML IVPB ×2 (08:35→21:15)
[2018-08-20] MEDS: BACLOFEN 10 MG TAB PO ×3 (09:00→21:00)
[2018-08-20] MEDS: CEPASTAT LOZENGE MT (09:09)
[2018-08-20] MEDS: DOCUSATE SODIUM 100 MG CAP PO ×2 (09:09→21:15)
[2018-08-20] MEDS: POLYETHYLENE GLYCOL 17 GM PACKET PO (09:09)
[2018-08-20] MEDS: DICLOFENAC SODIUM 1% GEL 100 GM TUBE TP ×4 (09:09→21:16)
[2018-08-20] MEDS: FAMOTIDINE 20 MG TAB PO (09:10)
[2018-08-20] MEDS: TIOTROPIUM 18 MCG CAPSULE INHA DEV INH (09:10)
[2018-08-20] MEDS: LISINOPRIL 5 MG TAB PO (09:11)
[2018-08-20] MEDS: FLUTICASONE/VILANTEROL 200-25 INH DEVICE INH (09:12)
[2018-08-20] MEDS: CYCLOBENZAPRINE 10 MG TAB PO (10:29)
[2018-08-20] MEDS: PHENOL 1.4% SOLN 180 ML BTL MT (12:10)
[2018-08-20] MEDS: AL HYDROX/MG HYDROX/SIMETH 30 ML CUP PO (13:38)
[2018-08-20] MEDS: LEVALBUTEROL (NEB) 0.63 MG/3 ML AMP HHN ×3 (13:41→19:59)
[2018-08-20] MEDS: SERTRALINE 50 MG TAB PO (16:18)
[2018-08-20] MEDS: RIVAROXABAN 10 MG TABLET PO (18:03)
[2018-08-20] MEDS: ACETYLCYSTEINE 20% 4 ML VIAL NEB (19:59)
[2018-08-21] MEDS: HYDROCODONE/APAP (10/325) TAB PO ×2 (01:30→06:40)
[2018-08-21] MEDS: CEPASTAT LOZENGE MT ×4 (01:45→20:42)
[2018-08-21] MEDS: LEVALBUTEROL (NEB) 0.63 MG/3 ML AMP HHN (08:25)
[2018-08-21] MEDS: ACETYLCYSTEINE 20% 4 ML VIAL NEB (08:25)
[2018-08-21] MEDS: BACLOFEN 10 MG TAB PO ×4 (09:00→20:46)
[2018-08-21] MEDS: SERTRALINE 50 MG TAB PO (09:00)
[2018-08-21] MEDS: DICLOFENAC SODIUM 1% GEL 100 GM TUBE TP ×4 (09:13→20:43)
[2018-08-21] MEDS: DOCUSATE SODIUM 100 MG CAP PO ×2 (09:15→20:42)
[2018-08-21] MEDS: LISINOPRIL 5 MG TAB PO (09:16)
[2018-08-21] MEDS: FAMOTIDINE 20 MG TAB PO (09:16)
[2018-08-21] MEDS: POLYETHYLENE GLYCOL 17 GM PACKET PO (09:17)
[2018-08-21] MEDS: FLUTICASONE/VILANTEROL 200-25 INH DEVICE INH (09:19)
[2018-08-21] MEDS: CEFEPIME 1GM/50 ML (PMX) 50 ML IVPB (09:19)
[2018-08-21] MEDS: TIOTROPIUM 18 MCG CAPSULE INHA DEV INH (09:26)
[2018-08-21] MEDS ORDERED: PROMETHAZINE/CODEINE 5ML CUP PO (13:00)
[2018-08-21] MEDS: PROMETHAZINE/CODEINE 5ML CUP PO (14:37)
[2018-08-21] MEDS: ACETAMINOPHEN 650MG/20.3ML CUP PO (16:05)
[2018-08-21] MEDS: RIVAROXABAN 10 MG TABLET PO (17:16)
[2018-08-22] MEDS: AL HYDROX/MG HYDROX/SIMETH 30 ML CUP PO ×3 (00:19→23:44)
[2018-08-22] MEDS: HYDROCODONE/APAP (10/325) TAB PO ×3 (00:20→23:44)
[2018-08-22] MEDS: CEPASTAT LOZENGE MT ×2 (02:20→12:50)
[2018-08-22] MEDS: SERTRALINE 50 MG TAB PO (09:00)
[2018-08-22] MEDS: POLYETHYLENE GLYCOL 17 GM PACKET PO (09:00)
[2018-08-22] MEDS: BACLOFEN 10 MG TAB PO ×3 (09:00→21:00)
[2018-08-22] MEDS: FAMOTIDINE 20 MG TAB PO (09:43)
[2018-08-22] MEDS: DOCUSATE SODIUM 100 MG CAP PO ×2 (09:43→21:14)
[2018-08-22] MEDS: FLUTICASONE/VILANTEROL 200-25 INH DEVICE INH (09:44)
[2018-08-22] MEDS: LISINOPRIL 5 MG TAB PO (09:44)
[2018-08-22] MEDS: TIOTROPIUM 18 MCG CAPSULE INHA DEV INH (09:44)
[2018-08-22] MEDS: DICLOFENAC SODIUM 1% GEL 100 GM TUBE TP ×4 (09:45→21:18)
[2018-08-22] MEDS: LEVALBUTEROL (NEB) 0.63 MG/3 ML AMP HHN (09:57)
[2018-08-22] MEDS: RIVAROXABAN 10 MG TABLET PO (17:33)
[2018-08-22] MEDS: ACETAMINOPHEN 650MG/20.3ML CUP PO (17:41)
[2018-08-23] MEDS: LISINOPRIL 5 MG TAB PO (08:25)
[2018-08-23] MEDS: BACLOFEN 10 MG TAB PO ×4 (08:25→20:09)
[2018-08-23] MEDS: DOCUSATE SODIUM 100 MG CAP PO ×2 (08:25→20:07)
[2018-08-23] MEDS: POLYETHYLENE GLYCOL 17 GM PACKET PO (08:25)
[2018-08-23] MEDS: DICLOFENAC SODIUM 1% GEL 100 GM TUBE TP ×4 (08:26→20:06)
[2018-08-23] MEDS: TIOTROPIUM 18 MCG CAPSULE INHA DEV INH (08:26)
[2018-08-23] MEDS: SERTRALINE 50 MG TAB PO ×2 (08:26→08:32)
[2018-08-23] MEDS: FLUTICASONE/VILANTEROL 200-25 INH DEVICE INH (08:26)
[2018-08-23] MEDS: FAMOTIDINE 20 MG TAB PO (08:26)
[2018-08-23] MEDS: HYDROCODONE/APAP (10/325) TAB PO ×3 (08:27→22:49)
[2018-08-23] MEDS: CEPASTAT LOZENGE MT (13:18)
[2018-08-23] MEDS: AL HYDROX/MG HYDROX/SIMETH 30 ML CUP PO ×2 (16:33→22:55)
[2018-08-23] MEDS: RIVAROXABAN 10 MG TABLET PO (17:25)
== END 2018-08-23 23:45 | disposition home health service (06) | DRG 199 ==
LOC: TEL 08-23 18:40 → E/R 21:22 → TEL 08-08 00:02
PROC: 4A023N7 Measurement of Cardiac Sampling and Pressure, Left Heart, Percutaneous Approach (ICD-10-PCS; 2018-08-13 13:30)
PROC: B211YZZ Fluoroscopy of Multiple Coronary Arteries using Other Contrast (ICD-10-PCS; 2018-08-13 13:30)
PROC: B215YZZ Fluoroscopy of Left Heart using Other Contrast (ICD-10-PCS; 2018-08-13 13:30)
PROC: 0W9B00Z Drainage of Left Pleural Cavity with Drainage Device, Open Approach (ICD-10-PCS; principal; 2018-08-13 14:10)
PROC: 0W9B30Z Drainage of Left Pleural Cavity with Drainage Device, Percutaneous Approach (ICD-10-PCS; 2018-08-13 14:10)
DX: J93.83 Other pneumothorax (principal); J96.22 Acute and chronic respiratory failure with hypercapnia; J96.21 Acute and chronic respiratory failure with hypoxia; I21.4 Non-ST elevation (NSTEMI) myocardial infarction; E87.3 Alkalosis; I51.81 Takotsubo syndrome; G93.40 Encephalopathy, unspecified; J84.10 Pulmonary fibrosis, unspecified; J98.4 Other disorders of lung; B90.9 Sequelae of respiratory and unspecified tuberculosis; J47.9 Bronchiectasis, uncomplicated; D64.9 Anemia, unspecified; M54.2 Cervicalgia; F41.9 Anxiety disorder, unspecified; Z86.711 Personal history of pulmonary embolism
CPT/HCPCS: 36600; 70360; 71045; 71275; 80048; 80053; 81003; 82150; 82550; 82553; 82803; 82962; 83036; 83605; 83690; 83735; 84100; 84439; 84443; 84480; 84484; 85025; 85610; 85730; 87040-91; 87086; 87116; 93005; 93306; 93458; 94640; 94644; 94660; 94664; 94770; 96374; 96375; 97116; 97161; 97530; 99291-25